=== PATIENT | female | born 1985 | race Caucasian/White ===

== ENCOUNTER → 2019-03-13 | Outpatient (CLI) | payer OTHER ==
--- NOTE | 2019-03-13 11:47 | US ---
EXAMINATION TYPE: US abdomen complete DATE OF EXAM: 03/13/2019 COMPARISON: NONE CLINICAL HISTORY: R10.84 abdominal pain. Nausea, heartburn x 2 months EXAM MEASUREMENTS: Liver Length: 16.7 cm Gallbladder Wall: 0.2 cm CBD: 0.4 cm Spleen: 10.0 cm Right Kidney: 11.9 x 5.4 x 4.2 cm Left Kidney: 11.6 x 5.5 x 4.3 cm Pancreas: Obscured by bowel gas Liver: Increased attenuation Gallbladder: 1.5 cm mobile, shadowing gallstone Evidence for sonographic Gaviria's sign: No CBD: wnl Spleen: wnl Right Kidney: echogenic structure noted in upper pole of uncertain etiology. Left Kidney: wnl Upper IVC: wnl Abd Aorta: wnl IMPRESSION: 1. Cholelithiasis. 2. Linear hyperechoic area within the superior pole right kidney of unclear etiology. Consider CT for additional evaluation.
== END | disposition home or self-care (01) ==
LOC: RADUSMAIN 09:17
PROVIDERS: ATTEND Internal Medicine
DX: K80.20 Calculus of gallbladder without cholecystitis without obstruction (principal); R11.0 Nausea
CPT/HCPCS: 76700

== ENCOUNTER → 2019-04-01 | Outpatient (CLI) | payer OTHER ==
--- NOTE | 2019-04-01 09:47 | CT ---
EXAMINATION TYPE: CT abdomen w con DATE OF EXAM: 04/01/2019 COMPARISON: None HISTORY: Cholelithiasis, Abnormal US of kidney CT DLP: 920 mGycm CONTRAST: CT scan of the abdomen is performed with Oral Contrast and with IV Contrast, patient injected with 10 0 ml mL of Isovue 300. FINDINGS: LUNG BASES-: No visible nodule. No infiltrate. LIVER/GB: No calcified gallstones. No space occupying hepatic lesion. Biliary tree is of normal ca liber. PANCREAS: No inflammation. No distinct mass. SPLEEN: No splenic enlargement. No lesion seen. ADRENALS: No nodule. No thickening. KIDNEYS/BLADDER: No hydronephrosis. No nephrolithiasis. No distinct renal mass. Urinary bladder g rossly unremarkable. BOWEL: Normal appendix. Normal bowel caliber. No inflammation. LYMPH NODES: No greater than 1cm abdominal or pelvic lymph nodes are appreciated. AORTA: No significant abnormality. OSSEOUS STRUCTURES: No significant abnormality is seen. OTHER: No significant additional abnormality is seen. IMPRESSION: 1. Unremarkable study.
== END | disposition home or self-care (01) ==
LOC: RADCTMAIN 08:05
PROVIDERS: ATTEND Internal Medicine
DX: R93.421 Abnormal radiologic findings on diagnostic imaging of right kidney (principal)
CPT/HCPCS: 74160; Q9967

== ENCOUNTER → 2020-03-06 | Outpatient (CLI) | payer OTHER ==
--- NOTE | 2020-03-06 12:37 | US ---
EXAMINATION TYPE: US abdomen complete DATE OF EXAM: 03/06/2020 COMPARISON: CT abdomen pelvis 04/01/2019. Abdominal ultrasound 03/13/2019. CLINICAL HISTORY: R11.0 [id number] Nausea. Nausea. Patient states previous ultrasound showed gallst one but CT did not. EXAM MEASUREMENTS: Liver Length: 16.6 cm Gallbladder Wall: 0.2 cm CBD: 0.3 cm Spleen: 10.6 cm Right Kidney: 11.2 x 4.9 x 3.5 cm Left Kidney: 10.6 x 3.8 x 4.0 cm Limited due to overlying bowel gas Pancreas: Normal liver visualized. Liver: Increased echogenicity redemonstrated. Gallbladder: Cholelithiasis. No gallbladder wall thickening or pericholecystic edema. [employer] reports negative sonographic Gaviria sign. CBD: Normal. Spleen: Normal. Right Kidney: Normal. Left Kidney: Normal. Upper IVC: Normal. Abd Aorta: No abdominal aortic aneurysm in portions seen. IMPRESSION: 1. Redemonstrated increased echogenicity of the liver. Findings may represent hepatic steatosis. 2. Cholelithiasis. No acute cholecystitis.
== END | disposition home or self-care (01) ==
LOC: RADUSWWP 07:33
PROVIDERS: ATTEND Internal Medicine
DX: K80.20 Calculus of gallbladder without cholecystitis without obstruction (principal)
CPT/HCPCS: 76700

== ENCOUNTER → 2023-04-19 | Outpatient (CLI) | payer OTHER ==
--- NOTE | 2023-04-20 12:47 | XR ---
EXAMINATION TYPE: XR chest 2V DATE OF EXAM: 04/19/2023 COMPARISON: NONE TECHNIQUE: PA and lateral views submitted. HISTORY: Cough FINDINGS: The lungs are clear and there is no pneumothorax, pleural effusion, or focal pneumonia. Heart size normal and no overt failure. Osseous structures demonstrate hypertrophic and degenerative changes of the spine. IMPRESSION: 1. No acute process.
== END | disposition home or self-care (01) ==
LOC: RADXRMAIN 16:45
PROVIDERS: ATTEND Internal Medicine
DX: R05.9 Cough, unspecified (principal)
CPT/HCPCS: 71046